=== PATIENT | female | born 1970 | race Caucasian/White ===

== ENCOUNTER 2017-07-12 15:15 | Inpatient (IN) | payer OTHER ==
[2017-07-12] MEDS ORDERED: SODIUM CHLORIDE 0.9% 1,000 ML IV STA (15:22)
[2017-07-12] MEDS ORDERED: SODIUM CHLORIDE 0.9% 1,000 ML with MVI, ADULT NO.4 WITH VIT K 10 ML, THIAMINE 100 MG, F... IV ONE ×4 (15:30)
[2017-07-12] MEDS ORDERED: LORazepam 2 MG/ML INJ IV PRN (15:32)
--- NOTE | 2017-07-12 15:36 | ED ---
General Adult HPI - General Chief complaint: Psychiatric Symptoms Stated complaint: ETOH/Suicidal Time Seen by Provider: 07/12/17 15:21 Source: patient, RN notes reviewed Mode of arrival: wheelchair Limitations: no limitations - History of Present Illness Initial comments: Patient 46-year-old female who admits to history of alcoholism, presenting to the emergency room today with a chief complaint of feeling suicidal. She does admits to being a daily drinker approximate pint a day. States last drink was approximately 5 hours ago. States called coworker to bring her here to the hospital if she is having thoughts of hurting herself. Patient does admit that she was admitted approximately beers ago for similar thoughts. She states she does not see a counselor or therapist regularly. She admits to abdominal pain but states this is nothing new has been going on for a long time. Patient denies any other complaints or symptoms at this time. Patient denies any recent fever, chills, shortness of breath, chest pain, back pain, headaches or visual changes, or any other complaints. - Related Data Home Medications Medication Instructions Recorded Confirmed Atenolol [Tenormin] 25 mg PO DAILY 07/12/17 07/12/17 Buprenorphine HCl/Naloxone HCl 1 film SL BID 07/12/17 07/12/17 [Suboxone 8 mg-2 mg Sl Film] Tiotropium Br/Olodaterol HCl 1 spray INHALATION RT-DAILY 07/12/17 07/12/17 [Stiolto Respimat Inhal [place]] Allergies Allergy/AdvReac Type Severity Reaction Status Date / Time No Known Allergies Allergy Verified 07/12/17 16:06 Review of Systems ROS Statement: Those systems with pertinent positive or pertinent negative responses have been documented in the HPI. ROS Other: All systems not noted in ROS Statement are negative. Past Medical History Past Medical History: Hypertension History of Any Multi-Drug Resistant Organisms: None Reported Past Surgical History: No Surgical Hx Reported Past Psychological History: No Psychological Hx Reported Smoking Status: Current every day smoker Past Alcohol Use History: Daily Past Drug Use History: None Reported General Exam - General Exam Comments Initial Comments: General: The patient is awake and alert, in no distress, and does not appear acutely ill. Intoxicated. Eye: Pupils are equal, round and reactive to light, extra-ocular movements are intact. No nystagmus. There is normal conjunctiva bilaterally. No signs of icterus. Ears, nose, mouth and throat: There are moist mucous membranes and no oral lesions. Neck: The neck is supple, there is no tenderness or JVD. Cardiovascular: There is a regular rate and rhythm. No murmur, rub or gallop is appreciated. Respiratory: Lungs are clear to auscultation, respirations are non-labored, breath sounds are equal. No wheezes, stridor, rales, or rhonchi. Gastrointestinal: Soft, non-distended, non-tender abdomen without masses or organomegaly noted. There is no rebound or guarding present. No CVA tenderness. Musculoskeletal: Normal ROM, no tenderness. Strength 5/5. Sensation intact. Pulses equal bilaterally 2+. Neurological: A&O x 3. CN II-XII intact, There are no obvious motor or sensory deficits. Coordination appears grossly intact. Speech is normal. Skin: Skin is warm and dry and no rashes or lesions are noted. Psychiatric: Cooperative Limitations: no limitations Course Vital Signs 07/12/17 07/12/17 07/12/17 15:15 19:17 20:37 Temperature 97 F L Pulse Rate 112 H 100 94 Respiratory 18 16 18 Rate Blood Pressure 162/88 136/74 O2 Sat by Pulse 95 93 L 93 L Oximetry 07/13/17 07/13/17 07/13/17 00:10 01:06 03:52 Temperature 98.0 F Pulse Rate 93 97 98 Respiratory 18 20 20 Rate Blood Pressure 156/84 148/78 132/60 O2 Sat by Pulse 93 L 92 L 93 L Oximetry 07/13/17 07/13/17 07/13/17 05:29 06:33 07:06 Temperature Pulse Rate 97 87 94 Respiratory 20 20 18 Rate Blood Pressure 150/91 139/67 150/83 O2 Sat by Pulse 91 L 90 L 90 L Oximetry 07/13/17 07/13/17 07/13/17 08:07 09:12 10:33 Temperature Pulse Rate 92 97 85 Respiratory 18 18 18 Rate Blood Pressure 143/81 143/81 155/89 O2 Sat by Pulse 91 L 96 93 L Oximetry 07/13/17 14:15 Temperature Pulse Rate 86 Respiratory 18 Rate Blood Pressure 150/72 O2 Sat by Pulse 97 Oximetry Medical Decision Making - Medical Decision Making Patient was seen here in the emergency room by [facility]. The recommendation at patient be admitted inpatient. No beds available here in [place] patient will be transferred. - Lab Data Result diagrams: 07/12/17 15:50 07/12/17 15:50 Lab Results 07/12/17 07/12/17 07/12/17 Range/Units 15:50 15:50 15:50 WBC 3.6 L (3.8-10.6) k/uL RBC 4.91 (3.80-5.40) m/uL Hgb 16.1 H (11.4-16.0) gm/dL Hct 50.1 H (34.0-46.0) % MCV 102.0 H (80.0-100.0) fL MCH 32.9 (25.0-35.0) pg MCHC 32.2 (31.0-37.0) g/dL RDW 13.2 (11.5-15.5) % Plt Count 250 (150-450) k/uL Neutrophils % 66 % Lymphocytes % 22 % Monocytes % 8 % Eosinophils % 2 % Basophils % 0 % Neutrophils # 2.3 (1.3-7.7) k/uL Lymphocytes # 0.8 L (1.0-4.8) k/uL Monocytes # 0.3 (0-1.0) k/uL Eosinophils # 0.1 (0-0.7) k/uL Basophils # 0.0 (0-0.2) k/uL Macrocytosis Slight Sodium 146 H (137-145) mmol/L Potassium 4.3 (3.5-5.1) mmol/L Chloride 98 (98-107) mmol/L Carbon Dioxide 13 L (22-30) mmol/L Anion Gap 35 mmol/L BUN 15 (7-17) mg/dL Creatinine 0.65 (0.52-1.04) mg/dL Est GFR (CKD-EPI)AfAm >90 (>60 ml/min/1.73 sqM) Est GFR (CKD-EPI)NonAf >90 (>60 ml/min/1.73 sqM) Glucose 71 L (74-99) mg/dL Calcium 9.1 (8.4-10.2) mg/dL Total Bilirubin 1.4 H (0.2-1.3) mg/dL AST 223 H (14-36) U/L ALT 164 H (9-52) U/L Alkaline Phosphatase 64 (38-126) U/L Total Protein 8.4 H (6.3-8.2) g/dL Albumin 5.0 (3.5-5.0) g/dL Urine Color Yellow Urine Appearance Clear (Clear) Urine pH 5.5 (5.0-8.0) Ur Specific [place] 1.006 (1.001-1.035) Urine Protein 1+ H (Negative) Urine Glucose (UA) Negative (Negative) Urine Ketones 2+ H (Negative) Urine Blood Trace H (Negative) Urine Nitrite Negative (Negative) Urine Bilirubin Negative (Negative) Urine Urobilinogen <2.0 (<2.0) mg/dL Ur Leukocyte Esterase Negative (Negative) Urine RBC <1 (0-5) /hpf Urine WBC <1 (0-5) /hpf Ur Squamous Epith Cells 1 (0-4) /hpf Hyaline Casts 5 H (0-2) /lpf Urine Mucus Rare H (None) /hpf Urine HCG, Qual (Not Detectd) Salicylates <1.0 mg/dL Urine Opiates Screen Not Detected (NotDetected) Ur Oxycodone Screen Not Detected (NotDetected) Urine Methadone Screen Not Detected (NotDetected) Ur Propoxyphene Screen Not Detected (NotDetected) Acetaminophen <10.0 ug/mL Ur Barbiturates Screen Not Detected (NotDetected) U Tricyclic Antidepress Not Detected (NotDetected) Ur Phencyclidine Scrn Not Detected (NotDetected) Ur Amphetamines Screen Not Detected (NotDetected) U Methamphetamines Scrn Not Detected (NotDetected) U Benzodiazepines Scrn Not Detected (NotDetected) Urine Cocaine Screen Not Detected (NotDetected) U Marijuana (THC) Screen Not Detected (NotDetected) 07/12/17 Range/Units 15:50 WBC (3.8-10.6) k/uL RBC (3.80-5.40) m/uL Hgb (11.4-16.0) gm/dL Hct (34.0-46.0) % MCV (80.0-100.0) fL MCH (25.0-35.0) pg MCHC (31.0-37.0) g/dL RDW (11.5-15.5) % Plt Count (150-450) k/uL Neutrophils % % Lymphocytes % % Monocytes % % Eosinophils % % Basophils % % Neutrophils # (1.3-7.7) k/uL Lymphocytes # (1.0-4.8) k/uL Monocytes # (0-1.0) k/uL Eosinophils # (0-0.7) k/uL Basophils # (0-0.2) k/uL Macrocytosis Sodium (137-145) mmol/L Potassium (3.5-5.1) mmol/L Chloride (98-107) mmol/L Carbon Dioxide (22-30) mmol/L Anion Gap mmol/L BUN (7-17) mg/dL Creatinine (0.52-1.04) mg/dL Est GFR (CKD-EPI)AfAm (>60 ml/min/1.73 sqM) Est GFR (CKD-EPI)NonAf (>60 ml/min/1.73 sqM) Glucose (74-99) mg/dL Calcium (8.4-10.2) mg/dL Total Bilirubin (0.2-1.3) mg/dL AST (14-36) U/L ALT (9-52) U/L Alkaline Phosphatase (38-126) U/L Total Protein (6.3-8.2) g/dL Albumin (3.5-5.0) g/dL Urine Color Urine Appearance (Clear) Urine pH (5.0-8.0) Ur Specific [place] (1.001-1.035) Urine Protein (Negative) Urine Glucose (UA) (Negative) Urine Ketones (Negative) Urine Blood (Negative) Urine Nitrite (Negative) Urine Bilirubin (Negative) Urine Urobilinogen (<2.0) mg/dL Ur Leukocyte Esterase (Negative) Urine RBC (0-5) /hpf Urine WBC (0-5) /hpf Ur Squamous Epith Cells (0-4) /hpf Hyaline Casts (0-2) /lpf Urine Mucus (None) /hpf Urine HCG, Qual Not Detected (Not Detectd) Salicylates mg/dL Urine Opiates Screen (NotDetected) Ur Oxycodone Screen (NotDetected) Urine Methadone Screen (NotDetected) Ur Propoxyphene Screen (NotDetected) Acetaminophen ug/mL Ur Barbiturates Screen (NotDetected) U Tricyclic Antidepress (NotDetected) Ur Phencyclidine Scrn (NotDetected) Ur Amphetamines Screen (NotDetected) U Methamphetamines Scrn (NotDetected) U Benzodiazepines Scrn (NotDetected) Urine Cocaine Screen (NotDetected) U Marijuana (THC) Screen (NotDetected) Disposition Clinical Impression: Suicidal ideation Disposition: TRANSFER TO PSYCH HOSP/UNIT Condition: Stable Is patient prescribed a controlled substance at d/c from ED?: No Referrals: None,Stated [Primary Care Provider] - 1-2 days Time of Disposition: 14:27
[2017-07-12 16:08] LABS: Basophils % (A) 0 %; Eosinophils # (A) 0.1 k/uL (0-0.7); Eosinophils % (A) 2 %; HCT 50.1 % (34.0-46.0); HGB 16.1 gm/dL (11.4-16.0); Lymphocytes # (A) 0.8 k/uL (1.0-4.8); Lymphocytes % (A) 22 %; MCH 32.9 pg (25.0-35.0); MCHC 32.2 g/dL (31.0-37.0); Macrocytosis Slight; Mean Platelet Volume 7.3; Monocytes # (A) 0.3 k/uL (0-1.0); Monocytes % (A) 8 %; Neutrophils # (A) 2.3 k/uL (1.3-7.7); Neutrophils % (A) 66 %; Platelet Count 250 k/uL (150-450); RBC 4.91 m/uL (3.80-5.40); RDW 13.2 % (11.5-15.5); WBC 3.6 k/uL (3.8-10.6)
[2017-07-12 16:12] LABS: ALT 164 U/L (9-52); AST 223 U/L (14-36); Acetaminophen <10.0 ug/mL; Alkaline Phosphatase 64 U/L (38-126); Anion Gap 35 mmol/L; Blood Urea Nitrogen 15 mg/dL (7-17); Calcium 9.1 mg/dL (8.4-10.2); Carbon Dioxide 13 mmol/L (22-30); Chloride 98 mmol/L (98-107); Glucose 71 mg/dL (74-99); Potassium 4.3 mmol/L (3.5-5.1); Salicylate <1.0 mg/dL; Sodium 146 mmol/L (137-145); Total Bilirubin 1.4 mg/dL (0.2-1.3); Total Protein 8.4 g/dL (6.3-8.2)
[2017-07-12 16:25] LABS: Appearance,Urine Clear (Clear); Bilirubin,Urine Negative (Negative); Blood,Urine Trace (Negative); Color,Urine Yellow; Glucose,Urine (UA) Negative (Negative); Hyaline Casts,Urine 5 /lpf (0-2); Ketones,Urine 2+ (Negative); Leukocyte Esterase,Urine Negative (Negative); Mucus,Urine Rare /hpf; Nitrite,Urine Negative (Negative); PH, Urine 5.5 (5.0-8.0); Protein,Urine 1+ (Negative); RBC,Urine <1 /hpf (0-5); Specific Gravity,Urine 1.006 (1.001-1.035); Squamous Epithelial Cell,Urine 1 /hpf (0-4); Urobilinogen,Urine <2.0 mg/dL (<2.0); WBC,Urine <1 /hpf (0-5)
[2017-07-12 16:27] LABS: Amphetamine Screen,Urine Not Detected (NotDetected); Barbiturate Screen,Urine Not Detected (NotDetected); Benzodiazepines Screen,Urine Not Detected (NotDetected); Cocaine Screen,Urine Not Detected (NotDetected); Methadone Screen, Urine Not Detected (NotDetected); Opiate Screen,Urine Not Detected (NotDetected); Oxycodone Screen, Urine Not Detected (NotDetected); Phencyclidine Screen,Urine Not Detected (NotDetected); Tricyclic Antidepressant,Urine Not Detected (NotDetected); Urn Cannabinoid Scrn Not Detected (NotDetected)
[2017-07-12] MEDS ORDERED: ONDANSETRON 4 MG/2 ML VIAL IVP STA ×2 (20:18→23:46)
[2017-07-12] MEDS: LORazepam 2 MG/ML INJ IV PRN (21:38)
[2017-07-13] MEDS: LORazepam 2 MG/ML INJ IV PRN ×6 (00:21→21:33)
[2017-07-13] MEDS ORDERED: ONDANSETRON 4 MG/2 ML VIAL IVP STA (05:22)
[2017-07-13] MEDS: THIAMINE 100 MG TAB PO SCH ×2 (14:14→17:03)
[2017-07-13 18:54] LABS: Glucose,Whole Blood 87 mg/dL (75-99)
--- NOTE | 2017-07-13 19:05 | XR ---
EXAMINATION TYPE: XR chest 2V DATE OF EXAM: 07/13/2017 COMPARISON: Chest x-ray December 08, 2010. HISTORY: Hypoxia. TECHNIQUE: Frontal and lateral views of the chest are obtained. FINDINGS: Suspicious spiculated opacity medial right upper lung. There is no focal air space opacity , pleural effusion, or pneumothorax seen. The cardiac silhouette size is within normal limits. The osseous structures are intact. IMPRESSION: No suspicious acute infiltrate. New spiculated right paratracheal opacity medial upper l obe could reflect spiculated nodule or neoplasm. Follow-up nonemergent contrast-enhanced chest CT is advised.
[2017-07-13] MEDS ORDERED: RX INFO: IV CONTRAST WAS GIVEN 1 EACH MISC MISCELLANE PRN (19:12)
--- NOTE | 2017-07-13 19:31 | ED ---
Medical Decision Making - Medical Decision Making Patient's initial pulse ox to the emergency room is 95% on room air. Patient was placed on oxygen due to intoxication. Patient's oxygen checked currently 93 % on 3 L of oxygen. Patient recently receiving Ativan approximately 2 hours ago. Patient admits to feeling some shortness of breath but not much more than her usual. She mitts. Daily smoker. Patient chest x-ray reveals possible mass right upper lobe. CT chest has been ordered and currently pending at this time. Patient will also have ABG. EKG showing no acute changes. EKG performed at 1911: Shows normal sinus rhythm at [address] interval 146. QRS 102. QT/QTc 432/469. No acute changes. 1929: Case discussed and signed out to Dr Smith - Lab Data Result diagrams: 07/12/17 15:50 07/12/17 15:50 Lab Results 07/12/17 07/12/17 07/12/17 Range/Units 15:50 15:50 15:50 WBC 3.6 L (3.8-10.6) k/uL RBC 4.91 (3.80-5.40) m/uL Hgb 16.1 H (11.4-16.0) gm/dL Hct 50.1 H (34.0-46.0) % MCV 102.0 H (80.0-100.0) fL MCH 32.9 (25.0-35.0) pg MCHC 32.2 (31.0-37.0) g/dL RDW 13.2 (11.5-15.5) % Plt Count 250 (150-450) k/uL Neutrophils % 66 % Lymphocytes % 22 % Monocytes % 8 % Eosinophils % 2 % Basophils % 0 % Neutrophils # 2.3 (1.3-7.7) k/uL Lymphocytes # 0.8 L (1.0-4.8) k/uL Monocytes # 0.3 (0-1.0) k/uL Eosinophils # 0.1 (0-0.7) k/uL Basophils # 0.0 (0-0.2) k/uL Macrocytosis Slight Sodium 146 H (137-145) mmol/L Potassium 4.3 (3.5-5.1) mmol/L Chloride 98 (98-107) mmol/L Carbon Dioxide 13 L (22-30) mmol/L Anion Gap 35 mmol/L BUN 15 (7-17) mg/dL Creatinine 0.65 (0.52-1.04) mg/dL Est GFR (CKD-EPI)AfAm >90 (>60 ml/min/1.73 sqM) Est GFR (CKD-EPI)NonAf >90 (>60 ml/min/1.73 sqM) Glucose 71 L (74-99) mg/dL POC Glucose (mg/dL) (75-99) mg/dL POC Glu Telephone Services Sales Representative ID Calcium 9.1 (8.4-10.2) mg/dL Total Bilirubin 1.4 H (0.2-1.3) mg/dL AST 223 H (14-36) U/L ALT 164 H (9-52) U/L Alkaline Phosphatase 64 (38-126) U/L Total Protein 8.4 H (6.3-8.2) g/dL Albumin 5.0 (3.5-5.0) g/dL Urine Color Yellow Urine Appearance Clear (Clear) Urine pH 5.5 (5.0-8.0) Ur Specific [place] 1.006 (1.001-1.035) Urine Protein 1+ H (Negative) Urine Glucose (UA) Negative (Negative) Urine Ketones 2+ H (Negative) Urine Blood Trace H (Negative) Urine Nitrite Negative (Negative) Urine Bilirubin Negative (Negative) Urine Urobilinogen <2.0 (<2.0) mg/dL Ur Leukocyte Esterase Negative (Negative) Urine RBC <1 (0-5) /hpf Urine WBC <1 (0-5) /hpf Ur Squamous Epith Cells 1 (0-4) /hpf Hyaline Casts 5 H (0-2) /lpf Urine Mucus Rare H (None) /hpf Urine HCG, Qual (Not Detectd) Salicylates <1.0 mg/dL Urine Opiates Screen Not Detected (NotDetected) Ur Oxycodone Screen Not Detected (NotDetected) Urine Methadone Screen Not Detected (NotDetected) Ur Propoxyphene Screen Not Detected (NotDetected) Acetaminophen <10.0 ug/mL Ur Barbiturates Screen Not Detected (NotDetected) U Tricyclic Antidepress Not Detected (NotDetected) Ur Phencyclidine Scrn Not Detected (NotDetected) Ur Amphetamines Screen Not Detected (NotDetected) U Methamphetamines Scrn Not Detected (NotDetected) U Benzodiazepines Scrn Not Detected (NotDetected) Urine Cocaine Screen Not Detected (NotDetected) U Marijuana (THC) Screen Not Detected (NotDetected) 07/12/17 07/13/17 Range/Units 15:50 18:46 WBC (3.8-10.6) k/uL RBC (3.80-5.40) m/uL Hgb (11.4-16.0) gm/dL Hct (34.0-46.0) % MCV (80.0-100.0) fL MCH (25.0-35.0) pg MCHC (31.0-37.0) g/dL RDW (11.5-15.5) % Plt Count (150-450) k/uL Neutrophils % % Lymphocytes % % Monocytes % % Eosinophils % % Basophils % % Neutrophils # (1.3-7.7) k/uL Lymphocytes # (1.0-4.8) k/uL Monocytes # (0-1.0) k/uL Eosinophils # (0-0.7) k/uL Basophils # (0-0.2) k/uL Macrocytosis Sodium (137-145) mmol/L Potassium (3.5-5.1) mmol/L Chloride (98-107) mmol/L Carbon Dioxide (22-30) mmol/L Anion Gap mmol/L BUN (7-17) mg/dL Creatinine (0.52-1.04) mg/dL Est GFR (CKD-EPI)AfAm (>60 ml/min/1.73 sqM) Est GFR (CKD-EPI)NonAf (>60 ml/min/1.73 sqM) Glucose (74-99) mg/dL POC Glucose (mg/dL) 87 (75-99) mg/dL POC Glu Telephone Services Sales Representative ID Kiara Beavers Calcium (8.4-10.2) mg/dL Total Bilirubin (0.2-1.3) mg/dL AST (14-36) U/L ALT (9-52) U/L Alkaline Phosphatase (38-126) U/L Total Protein (6.3-8.2) g/dL Albumin (3.5-5.0) g/dL Urine Color Urine Appearance (Clear) Urine pH (5.0-8.0) Ur Specific [place] (1.001-1.035) Urine Protein (Negative) Urine Glucose (UA) (Negative) Urine Ketones (Negative) Urine Blood (Negative) Urine Nitrite (Negative) Urine Bilirubin (Negative) Urine Urobilinogen (<2.0) mg/dL Ur Leukocyte Esterase (Negative) Urine RBC (0-5) /hpf Urine WBC (0-5) /hpf Ur Squamous Epith Cells (0-4) /hpf Hyaline Casts (0-2) /lpf Urine Mucus (None) /hpf Urine HCG, Qual Not Detected (Not Detectd) Salicylates mg/dL Urine Opiates Screen (NotDetected) Ur Oxycodone Screen (NotDetected) Urine Methadone Screen (NotDetected) Ur Propoxyphene Screen (NotDetected) Acetaminophen ug/mL Ur Barbiturates Screen (NotDetected) U Tricyclic Antidepress (NotDetected) Ur Phencyclidine Scrn (NotDetected) Ur Amphetamines Screen (NotDetected) U Methamphetamines Scrn (NotDetected) U Benzodiazepines Scrn (NotDetected) Urine Cocaine Screen (NotDetected) U Marijuana (THC) Screen (NotDetected) Disposition Clinical Impression: Suicidal ideation Disposition: TRANSFER TO PSYCH HOSP/UNIT Condition: Stable Referrals: None,Stated [Primary Care Provider] - 1-2 days
--- NOTE | 2017-07-13 20:21 | CT ---
EXAMINATION TYPE: CT angio chest DATE OF EXAM: 07/13/2017 COMPARISON: Chest x-ray earlier today. HISTORY: Chest pain and shortness of breath. CT DLP: 587 mGycm. Automated Exposure Control for Dose Reduction was Utilized. CONTRAST: CTA scan of the thorax is performed with IV Contrast, patient injected with 75 mL of Isovue 370, pulm onary embolism protocol. MIP Images are created on CT scanner and reviewed. FINDINGS: LUNGS: Corresponding to chest x-ray abnormality there is elongated atelectasis or consolidation invol ving the medial aspect right upper lobe abutting the mediastinum, consider endobronchial occlusion as there is marked narrowing of right upper lung segmental bronchus at this level. Would suspect mucous plugging. Left lung is clear. No pleural effusion or pneumothorax is present bilaterally. There is a dditional atelectasis along the fissure of the right upper lobe and scattered right upper lung linear atelectasis. There is no pleural effusion or pneumothorax seen. The tracheobronchial tree is paten t. MEDIASTINUM: There is suboptimal bolus with thecal contrast in right and left heart systems, but ther e is no CT evidence for pulmonary embolism. There are no greater than 1 cm hilar or mediastinal lymp h nodes. No cardiomegaly or pericardial effusion is seen. OTHER: Small to moderate size hiatal hernia is present liver is diffusely low dense consistent with f atty infiltration.. IMPRESSION: 1. Suboptimal study without CT evidence for acute pulmonary embolism. 2. Scattered atelectatic change throughout the right upper lobe with more prominent focal medial atel ectasis felt present, consider obstructing mucous plug or other endobronchial lesion. No obvious mass or adenopathy noted. Documentation of radiographic resolution advised.
[2017-07-13 20:31] LABS: ABG Base Excess 5.5 mmol/L; ABG HCO3 29 mmol/L (21-25); ABG Oxygen Saturation 93.1 % (94-97); ABG PCO2 37 mmHg (35-45); ABG PO2 63 mmHg (83-108); ABG TCO2 30 mmol/L (19-24)
[2017-07-13] MEDS ORDERED: IPRATROPIUM-ALBUTEROL 3 ML NEB INHALATION PRN (21:40)
--- NOTE | 2017-07-13 21:40 | ED ---
Medical Decision Making - Medical Decision Making Patient was reportedly found by nursing to have continued low oxygen saturation. Patient does admit to being a heavy smoker. ABG shows pH 7.49. CO2 7.4. O2 63.3. Patient does have some wheezing on exam otherwise resting comfortably in bed. CT report reviewed. Case was discussed with Dr. bravo, who will admit for medical call. Pulmonary will be consulted. VQ scan will be ordered. Patient states she did originally present for concerns regarding her alcohol use. Patient does admit that she made suicidal threats however stated that was only if she did not receive help for her alcohol. Patient does admit to having some dyspnea however states this is chronic and unchanged for her. - Lab Data Result diagrams: 07/12/17 15:50 07/12/17 15:50 Lab Results 07/12/17 07/12/17 07/12/17 Range/Units 15:50 15:50 15:50 WBC 3.6 L (3.8-10.6) k/uL RBC 4.91 (3.80-5.40) m/uL Hgb 16.1 H (11.4-16.0) gm/dL Hct 50.1 H (34.0-46.0) % MCV 102.0 H (80.0-100.0) fL MCH 32.9 (25.0-35.0) pg MCHC 32.2 (31.0-37.0) g/dL RDW 13.2 (11.5-15.5) % Plt Count 250 (150-450) k/uL Neutrophils % 66 % Lymphocytes % 22 % Monocytes % 8 % Eosinophils % 2 % Basophils % 0 % Neutrophils # 2.3 (1.3-7.7) k/uL Lymphocytes # 0.8 L (1.0-4.8) k/uL Monocytes # 0.3 (0-1.0) k/uL Eosinophils # 0.1 (0-0.7) k/uL Basophils # 0.0 (0-0.2) k/uL Macrocytosis Slight Sample Site ABG pH (7.35-7.45) ABG pCO2 (35-45) mmHg ABG pO2 (83-108) mmHg ABG HCO3 (21-25) mmol/L ABG Total CO2 (19-24) mmol/L ABG O2 Saturation (94-97) % ABG Base Excess mmol/L Favian Test FiO2 % Sodium 146 H (137-145) mmol/L Potassium 4.3 (3.5-5.1) mmol/L Chloride 98 (98-107) mmol/L Carbon Dioxide 13 L (22-30) mmol/L Anion Gap 35 mmol/L BUN 15 (7-17) mg/dL Creatinine 0.65 (0.52-1.04) mg/dL Est GFR (CKD-EPI)AfAm >90 (>60 ml/min/1.73 sqM) Est GFR (CKD-EPI)NonAf >90 (>60 ml/min/1.73 sqM) Glucose 71 L (74-99) mg/dL POC Glucose (mg/dL) (75-99) mg/dL POC Glu Ex Chef ID Calcium 9.1 (8.4-10.2) mg/dL Total Bilirubin 1.4 H (0.2-1.3) mg/dL AST 223 H (14-36) U/L ALT 164 H (9-52) U/L Alkaline Phosphatase 64 (38-126) U/L Total Protein 8.4 H (6.3-8.2) g/dL Albumin 5.0 (3.5-5.0) g/dL Urine Color Yellow Urine Appearance Clear (Clear) Urine pH 5.5 (5.0-8.0) Ur Specific [place] 1.006 (1.001-1.035) Urine Protein 1+ H (Negative) Urine Glucose (UA) Negative (Negative) Urine Ketones 2+ H (Negative) Urine Blood Trace H (Negative) Urine Nitrite Negative (Negative) Urine Bilirubin Negative (Negative) Urine Urobilinogen <2.0 (<2.0) mg/dL Ur Leukocyte Esterase Negative (Negative) Urine RBC <1 (0-5) /hpf Urine WBC <1 (0-5) /hpf Ur Squamous Epith Cells 1 (0-4) /hpf Hyaline Casts 5 H (0-2) /lpf Urine Mucus Rare H (None) /hpf Urine HCG, Qual (Not Detectd) Salicylates <1.0 mg/dL Urine Opiates Screen Not Detected (NotDetected) Ur Oxycodone Screen Not Detected (NotDetected) Urine Methadone Screen Not Detected (NotDetected) Ur Propoxyphene Screen Not Detected (NotDetected) Acetaminophen <10.0 ug/mL Ur Barbiturates Screen Not Detected (NotDetected) U Tricyclic Antidepress Not Detected (NotDetected) Ur Phencyclidine Scrn Not Detected (NotDetected) Ur Amphetamines Screen Not Detected (NotDetected) U Methamphetamines Scrn Not Detected (NotDetected) U Benzodiazepines Scrn Not Detected (NotDetected) Urine Cocaine Screen Not Detected (NotDetected) U Marijuana (THC) Screen Not Detected (NotDetected) 07/12/17 07/13/17 07/13/17 Range/Units 15:50 18:46 20:25 WBC (3.8-10.6) k/uL RBC (3.80-5.40) m/uL Hgb (11.4-16.0) gm/dL Hct (34.0-46.0) % MCV (80.0-100.0) fL MCH (25.0-35.0) pg MCHC (31.0-37.0) g/dL RDW (11.5-15.5) % Plt Count (150-450) k/uL Neutrophils % % Lymphocytes % % Monocytes % % Eosinophils % % Basophils % % Neutrophils # (1.3-7.7) k/uL Lymphocytes # (1.0-4.8) k/uL Monocytes # (0-1.0) k/uL Eosinophils # (0-0.7) k/uL Basophils # (0-0.2) k/uL Macrocytosis Sample Site RRA ABG pH 7.50 H (7.35-7.45) ABG pCO2 37 (35-45) mmHg ABG pO2 63 L (83-108) mmHg ABG HCO3 29 H (21-25) mmol/L ABG Total CO2 30 H (19-24) mmol/L ABG O2 Saturation 93.1 L (94-97) % ABG Base Excess 5.5 mmol/L Favian Test Yes FiO2 21 % Sodium (137-145) mmol/L Potassium (3.5-5.1) mmol/L Chloride (98-107) mmol/L Carbon Dioxide (22-30) mmol/L Anion Gap mmol/L BUN (7-17) mg/dL Creatinine (0.52-1.04) mg/dL Est GFR (CKD-EPI)AfAm (>60 ml/min/1.73 sqM) Est GFR (CKD-EPI)NonAf (>60 ml/min/1.73 sqM) Glucose (74-99) mg/dL POC Glucose (mg/dL) 87 (75-99) mg/dL POC Glu Ex Chef Kiara Prado Calcium (8.4-10.2) mg/dL Total Bilirubin (0.2-1.3) mg/dL AST (14-36) U/L ALT (9-52) U/L Alkaline Phosphatase (38-126) U/L Total Protein (6.3-8.2) g/dL Albumin (3.5-5.0) g/dL Urine Color Urine Appearance (Clear) Urine pH (5.0-8.0) Ur Specific [place] (1.001-1.035) Urine Protein (Negative) Urine Glucose (UA) (Negative) Urine Ketones (Negative) Urine Blood (Negative) Urine Nitrite (Negative) Urine Bilirubin (Negative) Urine Urobilinogen (<2.0) mg/dL Ur Leukocyte Esterase (Negative) Urine RBC (0-5) /hpf Urine WBC (0-5) /hpf Ur Squamous Epith Cells (0-4) /hpf Hyaline Casts (0-2) /lpf Urine Mucus (None) /hpf Urine HCG, Qual Not Detected (Not Detectd) Salicylates mg/dL Urine Opiates Screen (NotDetected) Ur Oxycodone Screen (NotDetected) Urine Methadone Screen (NotDetected) Ur Propoxyphene Screen (NotDetected) Acetaminophen ug/mL Ur Barbiturates Screen (NotDetected) U Tricyclic Antidepress (NotDetected) Ur Phencyclidine Scrn (NotDetected) Ur Amphetamines Screen (NotDetected) U Methamphetamines Scrn (NotDetected) U Benzodiazepines Scrn (NotDetected) Urine Cocaine Screen (NotDetected) U Marijuana (THC) Screen (NotDetected) - Radiology Data Radiology results: report reviewed (CT angios of the chest is limited for pulmonary embolism. Suboptimal study. Atelectasis right upper lobe. Possible mucous plug or and no bronchial lesion.), image reviewed (Chest x-ray shows spiculated right. Tracheal opacity medial upper lobe.) Disposition Clinical Impression: Suicidal ideation, Dyspnea Disposition: ADMITTED IP TO THIS HOSP Condition: Stable Referrals: None,Stated [Primary Care Provider] - 1-2 days
--- NOTE | 2017-07-13 23:43 | NM ---
EXAMINATION TYPE: NM pul vent and perfuse DATE OF EXAM: 07/13/2017 COMPARISON: NONE HISTORY: TECHNIQUE: Utilizing inhalation of 39.5 mCi Tc 99m DTPA aerosol and intravenous injection of 4.97 mC i of Tc 99m MAA, ventilation and perfusion images are acquired post injection in multiple projections . FINDINGS: There is a matching defect involving the entire right upper lobe. There is some clumping of the trace r on the ventilation images centrally. The left lung appears Fairly normal perfusion. There is also fairly normal perfusion of the right lower lobe. There is no v entilation/perfusion mismatch. IMPRESSION: There is a large matching defect in the right upper lobe. I see no corresponding pulmonary consolidat ion or mass in the right upper lobe on the chest x-ray of today. This appearance could relate to airw ay disease. There is a low to intermediate probability of pulmonary embolism.
[2017-07-14 00:24] VITALS: BMI 31.7
[2017-07-14] MEDS: LORazepam 2 MG/ML INJ IV PRN ×7 (00:31→23:48)
[2017-07-14] MEDS: methylPREDNISolone SOD SUCCI 125 MG/2 ML VIAL IV SCH ×3 (00:31→11:40)
[2017-07-14] MEDS: IPRATROPIUM-ALBUTEROL 3 ML NEB INHALATION SCH ×6 (07:05→20:18)
[2017-07-14 07:28] LABS: Basophils % (A) 0 %; Eosinophils # (A) 0.1 k/uL (0-0.7); Eosinophils % (A) 1 %; HCT 49.8 % (34.0-46.0); HGB 16.1 gm/dL (11.4-16.0); Lymphocytes # (A) 0.4 k/uL (1.0-4.8); Lymphocytes % (A) 10 %; MCH 32.9 pg (25.0-35.0); MCHC 32.3 g/dL (31.0-37.0); Macrocytosis Slight; Monocytes # (A) 0.2 k/uL (0-1.0); Monocytes % (A) 5 %; Neutrophils # (A) 3.2 k/uL (1.3-7.7); Neutrophils % (A) 82 %; Platelet Count 152 k/uL (150-450); RBC 4.89 m/uL (3.80-5.40); RDW 12.9 % (11.5-15.5); WBC 3.9 k/uL (3.8-10.6)
[2017-07-14 07:48] LABS: ALT 144 U/L (9-52); AST 159 U/L (14-36); Albumin 4.6 g/dL (3.5-5.0); Alkaline Phosphatase 54 U/L (38-126); Anion Gap 20 mmol/L; Blood Urea Nitrogen 12 mg/dL (7-17); Calcium 9.4 mg/dL (8.4-10.2); Carbon Dioxide 24 mmol/L (22-30); Chloride 97 mmol/L (98-107); Glucose 124 mg/dL (74-99); Potassium 4.3 mmol/L (3.5-5.1); Sodium 141 mmol/L (137-145); Total Bilirubin 2.9 mg/dL (0.2-1.3); Total Protein 7.8 g/dL (6.3-8.2)
[2017-07-14] MEDS: ATENOLOL 25 MG TAB PO SCH (07:57)
[2017-07-14] MEDS: NON-FORMULARY DRUG (Buprenorphine Hcl/Naloxone Hcl [Suboxone 8 Mg-2 Mg Sl Film] 1 FILM) SL SCH ×2 (07:57→20:09)
[2017-07-14] MEDS: THIAMINE 100 MG TAB PO SCH ×2 (11:41→16:55)
--- NOTE | 2017-07-14 14:56 | P.HPIM ---
History of Present Illness This is a 46-year-old female came in to ER for alcohol detox patient apparently was complaining of suicidal ideations at the time patient denied any suicide ideations to me. Patient was doing okay was about to be transferred to psychiatric facility and and patient stayed in ER for for about a day or more and patient later found to be hypoxic because of extensive workup was obtained CAT scan of the chest was obtained which showed some atelectasis along with some air bronchograms suspicious for pneumonic process and a mucous plug without any pulmonary embolism patient doesn't have any significant wheezing does not appear to have any COPD exaggeration of asthma exacerbation has hypoxemia cannot be clearly explained because of which a VQ scan was obtained which showed enlarging matching defect in the right upper lobe and was read as low to intermediate property for pulmonary embolism. Considering low intermittent property along with a negative CAT scan my suspicion is extremely low that patient has PE although pathology was consulted the started her on Zosyn most probably because the air bronchogram in the right upper lobes with the possibility of aspiration. Patient presently is undergoing alcohol withdrawal and [facility] Patient apparently drinks 1 pint of alcohol every day. Patient is on room air at this time. Patient doesn't have any fever doesn't have any leukocytosis is comparing of cough without any sputum production. Patient denied any generalized body aches. ABG showed mild hypoxemia and respiratory alkalosis probably from anxiety. Does have elevated liver enzymes secondary to acute alcoholic hepatitis with mildly elevated bilirubin. Hepatitis panel and ultrasound of the liver gallbladder will be obtained. Patient is complaining of for generalized tiredness chills and tremors Review of Systems REVIEW OF SYSTEMS: CONSTITUTIONAL: No fever, no malaise, no fatigue. HEENT: No recent visual problems or hearing problems. Denied any sore throat. CARDIOVASCULAR: No chest pain, orthopnea, PND, no palpitations, no syncope. PULMONARY: No shortness of breath, no cough, no hemoptysis. GASTROINTESTINAL: No diarrhea, no nausea, no vomiting, no abdominal pain. Normoactive bowel sounds. NEUROLOGICAL: No headaches, no weakness, no numbness. HEMATOLOGICAL: Denies any bleeding or petechiae. GENITOURINARY: Denies any burning micturition, frequency, or urgency. MUSCULOSKELETAL/RHEUMATOLOGICAL: Denies any joint pain, swelling, or any muscle pain. ENDOCRINE: Denies any polyuria or polydipsia. The rest of the 14-point review of systems is negative. Past Medical History Past Medical History: Hypertension History of Any Multi-Drug Resistant Organisms: None Reported Past Surgical History: No Surgical Hx Reported, Tonsillectomy Past Psychological History: No Psychological Hx Reported Smoking Status: Current every day smoker Past Alcohol Use History: Daily Past Drug Use History: None Reported Medications and Allergies Home Medications Medication Instructions Recorded Confirmed Type Atenolol [Tenormin] 25 mg PO DAILY 07/12/17 07/12/17 History Buprenorphine HCl/Naloxone HCl 1 film SL BID 07/12/17 07/12/17 History [Suboxone 8 mg-2 mg Sl Film] Tiotropium Br/Olodaterol HCl 1 spray INHALATION RT-DAILY 07/12/17 07/12/17 History [Stiolto Respimat Inhal [place]] Allergies Allergy/AdvReac Type Severity Reaction Status Date / Time No Known Allergies Allergy Verified 07/12/17 16:06 Physical Exam Vitals: Vital Signs Temp Pulse Pulse Resp BP BP Pulse Ox 07/14/17 14:06 99.2 F 75 16 142/79 93 L 07/14/17 11:38 94 L 07/14/17 11:11 76 07/14/17 11:06 80 07/14/17 07:15 72 07/14/17 07:10 97.7 F 86 16 131/80 90 L 07/14/17 07:08 72 07/14/17 00:30 97.8 F 71 18 134/76 95 07/13/17 21:24 76 18 164/96 94 L 07/13/17 20:17 78 18 166/79 96 07/13/17 19:35 20 07/13/17 16:58 79 18 140/72 95 07/13/17 15:44 76 18 136/78 97 Intake and Output 07/13/17 07/14/17 07/14/17 22:59 06:59 14:59 Other: Voiding Method Toilet Toilet # Voids 2 Weight 83.915 kg PHYSICAL EXAMINATION: GENERAL: The patient is alert and oriented x3, not in any acute distress. Well developed, well nourished. Patient is bit tremulous HEENT: Pupils are round and equally reacting to light. EOMI. mild scleral icterus. No conjunctival pallor. Normocephalic, atraumatic. No pharyngeal erythema. No thyromegaly. CARDIOVASCULAR: S1 and S2 present. No murmurs, rubs, or gallops. PULMONARY: Chest is clear to auscultation, no wheezing or crackles. ABDOMEN: Soft, nontender, nondistended, normoactive bowel sounds. No palpable organomegaly. MUSCULOSKELETAL: No joint swelling or deformity. EXTREMITIES: No cyanosis, clubbing, or pedal edema. NEUROLOGICAL: Gross neurological examination did not reveal any focal deficits. SKIN: No rashes. Results CBC & Chem 7: 07/14/17 07:12 07/14/17 07:12 Labs: Abnormal Lab Results - Last 24 Hours (Table) 07/13/17 07/14/17 07/14/17 Range/Units 20:25 07:12 07:12 Hgb 16.1 H (11.4-16.0) gm/dL Hct 49.8 H (34.0-46.0) % MCV 102.0 H (80.0-100.0) fL Lymphocytes # 0.4 L (1.0-4.8) k/uL ABG pH 7.50 H (7.35-7.45) ABG pO2 63 L (83-108) mmHg ABG HCO3 29 H (21-25) mmol/L ABG Total CO2 30 H (19-24) mmol/L ABG O2 Saturation 93.1 L (94-97) % Chloride 97 L (98-107) mmol/L Creatinine 0.46 L (0.52-1.04) mg/dL Glucose 124 H (74-99) mg/dL Total Bilirubin 2.9 H (0.2-1.3) mg/dL AST 159 H (14-36) U/L ALT 144 H (9-52) U/L Thrombosis Risk Factor Assmnt - Choose All That Apply Any of the Below Risk Factors Present?: Yes Each Factor Represents 1 point: Abnormal pulmonary function (COPD), Age 41-60 years, Obesity (BMI >25) Other Risk Factors: No Other congenital or acquired thrombophilia - If yes, enter type in comment: No Thrombosis Risk Factor Assessment Total Risk Factor Score: 3 Thrombosis Risk Factor Assessment Level: Moderate Risk Assessment and Plan Plan: -Acute hypoxic respiratory failure: Unsure of the exact etiology patient is doing better now probably related to pneumonitis from aspiration patient may not require any antibiotics it's problem as most probably it's chemically mellitus anyways on the right discussed with pulmonology will continue with antibiotics, Considering a bronchogram in the right upper lobes along with possible mucus plugging. Suspicion is extremely alert but patient has be. Patient doesn't have any significant wheezing systemic steroids will be discontinued -Alcohol abuse: Counseling was provided -Severe depression: Psychiatric was consulted, patient has questionable suicidal ideation patient has a one-on-one sitter at this time -Alcohol withdrawal: Patient will be on Ativan CIWA protocol -Hypertension -Elevated liver enzymes: Most probably due to acute alcoholic hepatitis repeat liver enzymes tomorrow, acute hepatitis panel and ultrasound of the gallbladder tomorrow.
--- NOTE | 2017-07-14 15:33 | P.CNPUL ---
History of Present Illness Consult date: 07/14/17 Requesting physician: Brant Saldaña Reason for consult: abnormal CXR/CT, other Chief complaint: Right upper lobe opacity, rule out mucous plug versus endobronchial mass History of present illness: Tasia is a 46-year-old white female patient of Dr. Butcher, who was brought to the emergency department on 07/12/2017 at 1515 with complaints of feeling suicidal. Patient reports drinking heavily for 2 days prior to admission, she reportedly drink 2 quarts of vodka, was feeling depressed. She called her friend and requested to be taken to the hospital. Patient has a history of prior suicidal attempts right overdose, currently is not on any meds for depression, and she does not follow with any psychiatrist. She is a current smoker, 1-1/2 pack a day, for last 10-15 years, denies any history of asthma or COPD, prior history of chronic pulmonary conditions. Patient has a history of heroin abuse, in remission, she is currently on Suboxone. Other medical history includes hypertension, no history of heart disease or diabetes. Patient reports vomiting several times while she was intoxicated, is having some chills and sweats, but denies any dyspnea. Chest x-ray completed in emergency room showed new spiculated right paratracheal opacity in the medial upper lobe, as well as followed up with CTA chest which did not show any evidence for pulmonary embolism, and showed scattered atelectatic changes throughout the right upper lobe with more prominent focal medial atelectasis, with the possibility of an obstructing mucous plug or other endobronchial lesion. No obvious mass or adenopathy noted. VQ scan showed a low to intermediate probability of pulmonary embolism, and a large matching defect in the right upper lobe without corresponding pulmonary consolidation or mass. Patient has been afebrile while in the hospital, room air and socks is 88%, patient is on 2 L of oxygen per nasal cannula to sat at 93-94%. Labs showed WBC of 3.6, hemoglobin is 16.1, sodium of 146, CO2 of 13, BUN of 15, creatinine 0.65, urinalysis showed 1+ protein, 2+ ketones, trace blood, negative for leuks , and nitrites. Urine hCG was negative, salicylate level was less than 1.0, acetaminophen level was less than 10, urine drug screen was negative. Blood gas bleeding in the emergency room showed pO2 of 63, pCO2 of 37, and pH of 7.50 , and this was done on room air, with metabolic alkalosis and hypoxemia. Patient has significant wheezing and bronchospastic cough, was started on nebulized bronchodilators, started on Ativan for EtOH withdrawals, she was placed suicidal precautions, and was admitted for further management. We are asked to see this patient in consultation in regards to the right upper lobe opacity. Review of Systems All systems: negative Constitutional: Denies chills, Denies fever Eyes: denies blurred vision, denies pain Ears, nose, mouth and throat: Denies headache, Denies sore throat Cardiovascular: Denies chest pain, Denies shortness of breath Respiratory: Denies cough Gastrointestinal: Denies abdominal pain, Denies diarrhea, Denies nausea, Denies vomiting Genitourinary: Denies dysuria, Denies hematuria Musculoskeletal: Denies myalgias Integumentary: Denies pruritus, Denies rash Neurological: Denies numbness, Denies weakness Psychiatric: Denies anxiety, Denies depression Endocrine: Denies fatigue, Denies weight change Past Medical History Past Medical History: Hypertension History of Any Multi-Drug Resistant Organisms: None Reported Past Surgical History: No Surgical Hx Reported, Tonsillectomy Past Psychological History: No Psychological Hx Reported Smoking Status: Current every day smoker Past Alcohol Use History: Daily Past Drug Use History: None Reported Medications and Allergies Home Medications Medication Instructions Recorded Confirmed Type Atenolol [Tenormin] 25 mg PO DAILY 07/12/17 07/12/17 History Buprenorphine HCl/Naloxone HCl 1 film SL BID 07/12/17 07/12/17 History [Suboxone 8 mg-2 mg Sl Film] Tiotropium Br/Olodaterol HCl 1 spray INHALATION RT-DAILY 07/12/17 07/12/17 History [Stiolto Respimat Inhal [place]] Allergies Allergy/AdvReac Type Severity Reaction Status Date / Time No Known Allergies Allergy Verified 07/12/17 16:06 Physical Exam Vitals: Vital Signs Temp Pulse Pulse Resp BP BP Pulse Ox 07/14/17 14:06 99.2 F 75 16 142/79 93 L 07/14/17 11:38 94 L 07/14/17 11:11 76 07/14/17 11:06 80 05/16/18 07:15 72 07/14/17 07:10 97.7 F 86 16 131/80 90 L 07/14/17 07:08 72 07/14/17 00:30 97.8 F 71 18 134/76 95 07/13/17 21:24 76 18 164/96 94 L 07/13/17 20:17 78 18 166/79 96 07/13/17 19:35 20 07/13/17 16:58 79 18 140/72 95 07/13/17 15:44 76 18 136/78 97 Intake and Output 07/13/17 07/14/17 07/14/17 22:59 06:59 14:59 Other: Voiding Method Toilet Toilet # Voids 2 Weight 83.915 kg 46-year-old white female resting in bed, diaphoretic, disheveled, in no acute distress - Constitutional General appearance: cooperative, disheveled, no acute distress, obese - EENT Eyes: PERRLA ENT: NA/AT Ears: bilateral: normal - Neck Neck: no lymphadenopathy, normal ROM Carotids: bilateral: upstroke normal Thyroid: bilateral: normal size - Respiratory Respiratory: bilateral: wheezing, prolonged expiration - Cardiovascular Rhythm: regular Heart sounds: normal: S1, S2 ankle Peripheral Edema: absent: None leg Peripheral Edema: absent: None foot Peripheral Edema: absent: None dorsalis pedis Peripheral Pulses: bilateral: Normal radial pulse Peripheral Pulses: bilateral: Normal - Gastrointestinal General gastrointestinal: no organomegaly, soft, no tenderness - Integumentary Integumentary: normal turgor - Neurologic Neurologic: CNII-XII intact - Musculoskeletal Musculoskeletal: strength equal bilaterally - Psychiatric Psychiatric: A&O x's 3, appropriate affect, intact judgment & insight Results - Laboratory Findings CBC and BMP: 07/14/17 07:12 07/14/17 07:12 ABG ABG pH 7.50 (7.35-7.45) H 07/13/17 20:25 ABG pCO2 37 mmHg (35-45) 07/13/17 20:25 ABG pO2 63 mmHg (83-108) L 07/13/17 20:25 ABG O2 Saturation 93.1 % (94-97) L 07/13/17 20:25 Abnormal lab findings: Abnormal Labs 07/12/17 07/12/1707/12/18 15:50 15:50 15:50 WBC 3.6 L Hgb 16.1 H Hct 50.1 H MCV 102.0 H Lymphocytes # 0.8 L ABG pH ABG pO2 ABG HCO3 ABG Total CO2 ABG O2 Saturation Sodium 146 H Chloride Carbon Dioxide 13 L Creatinine Glucose 71 L Total Bilirubin 1.4 H AST 223 H ALT 164 H Total Protein 8.4 H Urine Protein 1+ H Urine Ketones 2+ H Urine Blood Trace H Hyaline Casts 5 H Urine Mucus Rare H 07/13/17 07/14/17 07/14/17 20:25 07:12 07:12 WBC Hgb 16.1 H Hct 49.8 H MCV 102.0 H Lymphocytes # 0.4 L ABG pH 7.50 H ABG pO2 63 L ABG HCO3 29 H ABG Total CO2 30 H ABG O2 Saturation 93.1 L Sodium Chloride 97 L Carbon Dioxide Creatinine 0.46 L Glucose 124 H Total Bilirubin 2.9 H AST 159 H ALT 144 H Total Protein Urine Protein Urine Ketones Urine Blood Hyaline Casts Urine Mucus - Diagnostic Findings Chest x-ray: report reviewed, image reviewed Additional studies: EKG reviewed Assessment and Plan Plan: Assessment: #1. Right upper lobe obstructing mucous plug versus endobronchial lesion, with surrounding atelectasis, without evidence of obvious mass or adenopathy. #2. Suspect possible aspiration, patient reports several episodes of vomiting at home #3. EtOH abuse #4. Suicidal ideation #5. Elevated liver transaminases, likely related to alcohol abuse #6. History of major depression with previous suicidal attempts by overdose #7. Nicotine dependence, patient smokes one and a half packs a day for 10-15 years #8. History of heroin abuse, currently in remission, and the patient is on Suboxone Plan: Chest x-ray and CTA chest reviewed by Dr. Galloway. The right upper lobe endobronchial lesion is likely related to mucous plugging, the possibility of a neoplasm is a lot less likely due to the patient's age. Continue with nebulized bronchodilators, will add Zosyn for possible aspiration. Continue IV steroids, continue CIWA protocol for EtOH withdrawal management. We'll repeat chest x-ray tomorrow. Maintain aspiration precautions. I performed a history & physical examination of the patient and discussed their management with my nurse practitioner, Rachael Valencia. I reviewed the nurse practitioner's note and agree with the documented findings and plan of care. Lung sounds are positive for scattered wheezes, congested nonproductive cough. The findings and the impression was discussed with the patient. I attest to the documentation by the nurse practitioner. Time with Patient: Greater than 30
[2017-07-14] MEDS: PIPERACILLIN-TAZOBACTAM 3.375 GM in DEXTROSE/WATER 1 50ML.BAG IVPB SCH ×2 (16:55→23:48)
--- NOTE | 2017-07-14 19:08 | US ---
EXAMINATION TYPE: US gallbladder DATE OF EXAM: 07/14/2017 COMPARISON: NONE CLINICAL HISTORY: elevated liver enzymes. Elevated liver enzymes, intermittent abdomen pain and N/V x couple months EXAM MEASUREMENTS: Liver Length: 16.6 cm Gallbladder Wall: 0.2 cm CBD: 0.5 cm Right Kidney: 10.3 x 5.3 x 4.2 cm Difficult and limited study due to patient body habitus Pancreas: visualized portions wnl, head and tail limited by overlying midline bowel gas Liver: visualized portions appear heterogeneous with increased echogenicity throughout Gallbladder: appears to be some hyperechoic echoes along posterior wall, possible sludge, wall measu res wnl Evidence for sonographic Dodge's sign: yes CBD: visualized portions wnl, limited by overlying bowel gas Right Kidney: visualized portions wnl, limited by rib shadowing and overlying bowel gas IMPRESSION: 1. Suspect gallbladder sludge. 2. Probable underlying fatty hepatic infiltration.
[2017-07-14 19:24] LABS: Hepatitis A Antibody IgM Non-Reactive (Non-Reactive); Hepatitis B Core IgM Non-Reactive (Non-Reactive)
[2017-07-15] MEDS: LORazepam 2 MG/ML INJ IV PRN ×3 (05:16→11:35)
[2017-07-15] MEDS: NON-FORMULARY DRUG (Buprenorphine Hcl/Naloxone Hcl [Suboxone 8 Mg-2 Mg Sl Film] 1 FILM) SL SCH (08:04)
[2017-07-15] MEDS: IPRATROPIUM-ALBUTEROL 3 ML NEB INHALATION SCH ×3 (08:07→15:13)
[2017-07-15] MEDS: ATENOLOL 25 MG TAB PO SCH (08:09)
[2017-07-15] MEDS: THIAMINE 100 MG TAB PO SCH (08:09)
[2017-07-15] MEDS: PIPERACILLIN-TAZOBACTAM 3.375 GM in DEXTROSE/WATER 1 50ML.BAG IVPB SCH (08:09)
[2017-07-15 08:11] LABS: ALT 112 U/L (9-52); AST 104 U/L (14-36); Alkaline Phosphatase 48 U/L (38-126); Anion Gap 12 mmol/L; Blood Urea Nitrogen 16 mg/dL (7-17); Calcium 9.6 mg/dL (8.4-10.2); Carbon Dioxide 29 mmol/L (22-30); Chloride 100 mmol/L (98-107); Glucose 107 mg/dL (74-99); Potassium 3.3 mmol/L (3.5-5.1); Sodium 141 mmol/L (137-145); Total Bilirubin 2.4 mg/dL (0.2-1.3); Total Protein 7.3 g/dL (6.3-8.2)
[2017-07-15] MEDS ORDERED: POTASSIUM CHLORIDE ER 20 MEQ TAB.ER PO STA (08:15)
[2017-07-15 08:22] VITALS: BP 115/72; RESP 18; TEMP 97.9
--- NOTE | 2017-07-15 09:17 | P.CN ---
Psychiatric Consult - . Consult date: 07/15/17 Consult:: 07/15/17 09:08 Patient was seen for a psych consult regarding suicidal ideation. Apparently patient came to the ER intoxicated and reported she was having suicidal thoughts. Apparently she had also requested to go to the rehab right away from the ER and when she was told it may not be possible, she told the ER personnel that she was suicidal and was admitted to medical floor for detox. According to patient's nurse, patient has refused to provide further details about her marital status living situation etc. Patient says his she has been drinking a fifth or more of liquor a day and is also on Subutex. Her UDS is negative for drugs of abuse. Today when I tried to talk to her she was not very well forthcoming with information. She did not even bother to turn towards me and talk to me until the nurses came to 0 and told her that she needs to talk to the doctor. She said she is doing fine except has some withdrawal symptoms. She said she does not want to go to the rehab, wants to go home when she is detoxed etc. Her speech is soft short and goal directed. Her mood is euthymic and affect is appropriate to the thought content. She denies hallucinations and delusional thinking. She insists that she is not suicidal and does not need a sitter. She denies homicidal thoughts. She is well oriented with adequate memory concentration etc. Her insight is fair and judgment appears to be impaired in the sense that she came here requesting rehab and now she says she just wants to be detoxed and go home. Assessment: Alcohol use disorder severe. Probable opioid use disorder moderate to severe. Patient denies suicide thoughts or plans. Suggestion: Patient's sister can be discontinued. Patient can be discharged when she is medically clear.
--- NOTE | 2017-07-15 11:06 | P.PN ---
Subjective 46-year-old being treated for alcohol withdrawals patient was evaluated by psychiatric suicidal ideations and patient denied any present suicidal ideations please refer to that dictation for further details. Patient is also being treated for pneumonia possibly aspiration with Zosyn. Patient hypoxemia resolved is receiving Ativan every 2 hours will monitor 1 more day possibility of discharge tomorrow. Patient is declining any treatment for her depression. Constitutional: Patient says she is still not feeling well Cardio vascular: denied any chest pain, palpitations Gastrointestinal denied any nausea vomiting Pulmonary: Denied any shortness of breath cough Neurologic denied any new focal deficits Objective - Vital Signs Vital signs: Vital Signs Temp 97.9 F 07/15/17 07:20 Pulse 88 07/15/17 08:20 Resp 18 07/15/17 07:20 BP 115/72 07/15/17 07:20 Pulse Ox 93 L 07/15/17 08:08 Intake & Output 07/14/17 07/15/17 07/15/17 18:59 06:59 18:59 Intake Total 350 60 Balance 350 60 Intake: Intake, IV Titration 50 Amount Piperacillin-Tazobactam 3 50 .375 gm In Dextrose/Water 1 50ml.bag @ 12.5 mls/hr IVPB Q8HR [facility] Rx#: [id number] Oral 300 60 Other: Voiding Method Toilet Toilet # Voids 3 1 - Exam PHYSICAL EXAMINATION: GENERAL: The patient is alert and oriented x3, not in any acute distress. Well developed, well nourished. HEENT: Pupils are round and equally reacting to light. EOMI. No scleral icterus. No conjunctival pallor. Normocephalic, atraumatic. No pharyngeal erythema. No thyromegaly. CARDIOVASCULAR: S1 and S2 present. No murmurs, rubs, or gallops. PULMONARY: Chest is clear to auscultation, no wheezing or crackles. ABDOMEN: Soft, nontender, nondistended, normoactive bowel sounds. No palpable organomegaly. MUSCULOSKELETAL: No joint swelling or deformity. EXTREMITIES: No cyanosis, clubbing, or pedal edema. NEUROLOGICAL: Gross neurological examination did not reveal any focal deficits. SKIN: No rashes. - Labs CBC & Chem 7: 07/14/17 07:12 07/15/17 07:31 Labs: Abnormal Lab Results - Last 24 Hours (Table) 07/14/17 07/15/17 Range/Units 07:12 07:31 Potassium 3.3 L (3.5-5.1) mmol/L Creatinine 0.47 L (0.52-1.04) mg/dL Glucose 107 H (74-99) mg/dL Total Bilirubin 2.4 H (0.2-1.3) mg/dL AST 104 H (14-36) U/L ALT 112 H (9-52) U/L Hep C IgG Ab Reactive H (Non-Reactive) Assessment and Plan Plan: -Acute hypoxic respiratory failure: Possible pneumonia in the right upper lobe patient is on Zosyn presently -Alcohol abuse: Counseling was provided -Severe depression: Psychiatric evaluated the patient and sitter was discontinued -Alcohol withdrawal: Patient will be on Ativan CIWA protocol -Hypertension -Elevated liver enzymes: Most probably due to acute alcoholic hepatitis repeat liver enzymes tomorrow, acute hepatitis panel and ultrasound of the gallbladder tomorrow.
[2017-07-15 11:41] VITALS: PULSE 88
--- NOTE | 2017-07-15 12:45 | P.PN ---
Subjective Progress Note Date: 07/15/17 Principal diagnosis: Right upper lobe opacity, rule out mucous plug versus endobronchial massKonrad Dozier is a 46-year-old white female patient of Dr. Butcher, who was brought to the emergency department on 07/12/2017 at 1515 with complaints of feeling suicidal. Patient reports drinking heavily for 2 days prior to admission, she reportedly drink 2 quarts of vodka, was feeling depressed. She called her friend and requested to be taken to the hospital. Patient has a history of prior suicidal attempts right overdose, currently is not on any meds for depression, and she does not follow with any psychiatrist. She is a current smoker, 1-1/2 pack a day, for last 10-15 years, denies any history of asthma or COPD, prior history of chronic pulmonary conditions. Patient has a history of heroin abuse, in remission, she is currently on Suboxone. Other medical history includes hypertension, no history of heart disease or diabetes. Patient reports vomiting several times while she was intoxicated, is having some chills and sweats, but denies any dyspnea. Chest x-ray completed in emergency room showed new spiculated right paratracheal opacity in the medial upper lobe, as well as followed up with CTA chest which did not show any evidence for pulmonary embolism, and showed scattered atelectatic changes throughout the right upper lobe with more prominent focal medial atelectasis, with the possibility of an obstructing mucous plug or other endobronchial lesion. No obvious mass or adenopathy noted. VQ scan showed a low to intermediate probability of pulmonary embolism, and a large matching defect in the right upper lobe without corresponding pulmonary consolidation or mass. Patient has been afebrile while in the hospital, room air and socks is 88%, patient is on 2 L of oxygen per nasal cannula to sat at 93-94%. Labs showed WBC of 3.6, hemoglobin is 16.1, sodium of 146, CO2 of 13, BUN of 15, creatinine 0.65, urinalysis showed 1+ protein, 2+ ketones, trace blood, negative for leuks , and nitrites. Urine hCG was negative, salicylate level was less than 1.0, acetaminophen level was less than 10, urine drug screen was negative. Blood gas bleeding in the emergency room showed pO2 of 63, pCO2 of 37, and pH of 7.50 , and this was done on room air, with metabolic alkalosis and hypoxemia. Patient has significant wheezing and bronchospastic cough, was started on nebulized bronchodilators, started on Ativan for EtOH withdrawals, she was placed suicidal precautions, and was admitted for further management. We are asked to see this patient in consultation in regards to the right upper lobe opacity. The patient is seen again today 07/15/2017 in follow-up on the regular medical floor. She is currently awake and alert in no acute distress. Not wanting to discuss much. She denies any worsening shortness of breath at this time. He is maintaining O2 saturations in the 90s on room air. No tachycardia. No tachypnea. She is afebrile. She is continued on bronchodilators and Zosyn. She remains on the CIWA protocol requiring Ativan. Today's chest x-ray is pending. Objective - Vital Signs Vital signs: Vital Signs Temp 97.9 F 07/15/17 07:20 Pulse 88 07/15/17 11:41 Resp 18 07/15/17 07:20 BP 115/72 07/15/17 07:20 Pulse Ox 93 L 07/15/17 08:08 Intake & Output 07/14/17 07/15/17 07/15/17 18:59 06:59 18:59 Intake Total 350 60 Balance 350 60 Intake: Intake, IV Titration 50 Amount Piperacillin-Tazobactam 3 50 .375 gm In Dextrose/Water 1 50ml.bag @ 12.5 mls/hr IVPB Q8HR [facility] Rx#: [id number] Oral 300 60 Other: Voiding Method Toilet Toilet # Voids 3 1 - Exam 46-year-old white female resting in bed, in no acute distress - Constitutional General appearance: cooperative, no acute distress, obese - EENT Eyes: PERRLA ENT: NA/AT Ears: bilateral: normal - Neck Neck: no lymphadenopathy, normal ROM Carotids: bilateral: upstroke normal Thyroid: bilateral: normal size - Respiratory Respiratory: bilateral: wheezing, prolonged expiration - Cardiovascular Rhythm: regular Heart sounds: normal: S1, S2 ankle Peripheral Edema: absent: None leg Peripheral Edema: absent: None foot Peripheral Edema: absent: None dorsalis pedis Peripheral Pulses: bilateral: Normal radial pulse Peripheral Pulses: bilateral: Normal - Gastrointestinal General gastrointestinal: no organomegaly, soft, no tenderness - Integumentary Integumentary: normal turgor - Neurologic Neurologic: CNII-XII intact - Musculoskeletal Musculoskeletal: strength equal bilaterally - Psychiatric Psychiatric: A&O x's 3, appropriate affect, intact judgment & insight - Labs CBC & Chem 7: 07/14/17 07:12 07/15/17 07:31 Labs: Abnormal Lab Results - Last 24 Hours (Table) 07/14/17 07/15/17 Range/Units 07:12 07:31 Potassium 3.3 L (3.5-5.1) mmol/L Creatinine 0.47 L (0.52-1.04) mg/dL Glucose 107 H (74-99) mg/dL Total Bilirubin 2.4 H (0.2-1.3) mg/dL AST 104 H (14-36) U/L ALT 112 H (9-52) U/L Hep C IgG Ab Reactive H (Non-Reactive) Assessment and Plan Assessment: Assessment: #1. Right upper lobe obstructing mucous plug versus endobronchial lesion, with surrounding atelectasis, without evidence of obvious mass or adenopathy. #2. Suspect possible aspiration, patient reports several episodes of vomiting at home #3. EtOH abuse #4. Suicidal ideation #5. Elevated liver transaminases, likely related to alcohol abuse #6. History of major depression with previous suicidal attempts by overdose #7. Nicotine dependence, patient smokes one and a half packs a day for 10-15 years #8. History of heroin abuse, currently in remission, and the patient is on Suboxone Plan: The patient was seen and evaluated by Dr. Cavanaugh. Unfortunately her chest x- ray is still pending. We'll review once done. She is improved today as compared to yesterday. Continue with bronchodilators and Zosyn. Continue the CIWA protocol. We will continue to follow and make further recommendations based on her clinical status. I, the cosigning physician, performed a history & physical examination of the patient. Lungs sounds few scattered rhonchi more so on the right. Maintaining good O2 saturations in the 90s on room air. I discussed the assessment and plan of care with my nurse practitioner, Sridevi Walker. I attest to the above note as dictated by her.
--- NOTE | 2017-07-15 13:01 | XR ---
EXAMINATION TYPE: XR chest 2V DATE OF EXAM: 07/15/2017 COMPARISON: Chest x-ray and CTA chest from 2 days ago. HISTORY: Aspiration pneumonia per order. TECHNIQUE: Frontal and lateral views of the chest are obtained. FINDINGS: There is improved aeration in medial right upper lobe atelectasis and/or consolidation. Th ere is new small amount of fluid in the right minor fissure with adjacent right upper lung atelectasi s and/or infiltrate. Additional small amount of fluid is suspected in the right major fissure. There is new patchy left basilar opacity seen on frontal view less well seen on lateral view. The cardiac s ilhouette size is within normal limits. The osseous structures are intact. IMPRESSION: Improved right medial atelectasis and/or consolidation suggests successful pulmonary delvis atment of mucous plugging. New small right pleural fluid is noted, slightly thicker in the right jannette r fissure raising concern for adjacent atelectasis and/or developing infiltrate. Cannot exclude devel oping left basilar atelectasis and/or infiltrate. Progress study advised.
[2017-07-15] MEDS ORDERED: HEPARIN SODIUM,PORCINE 5,000 UNIT/ML 1 ML VIAL SQ SCH (16:00)
--- NOTE | 2017-07-16 18:37 | P.DS ---
Providers Date of admission: 07/13/17 21:40 Attending physician: Sallie Sanz Consults: 07/13/17 21:40 Consult Physician Routine Consulting Provider: Brit Cavanaugh Consult Reason/Comments: dyspnea Do you want consulting provider notified?: Yes Consult Physician Routine Consulting Provider: Florence Tong Consult Reason/Comments: Suicidal ideation Do you want consulting provider notified?: Yes Primary care physician: Stated None Hospital Course: Patient left AMA Patient Condition at Discharge: Stable Plan - Discharge Summary New Discharge Prescriptions: No Action Atenolol [Tenormin] 25 mg PO DAILY Tiotropium Br/Olodaterol HCl [Stiolto Respimat Inhal [place]] 1 spray INHALATION RT-DAILY Buprenorphine HCl/Naloxone HCl [Suboxone 8 mg-2 mg Sl Film] 1 film SL BID Discharge Medication List Atenolol [Tenormin] 25 mg PO DAILY 07/12/17 [History] Buprenorphine HCl/Naloxone HCl [Suboxone 8 mg-2 mg Sl Film] 1 film SL BID [History] Tiotropium Br/Olodaterol HCl [Stiolto Respimat Inhal Justin] 1 spray INHALATION RT-DAILY 07/12/17 [History] Follow up Appointment(s)/Referral(s): None,Stated [Primary Care Provider] - 1-2 days Discharge Disposition: Left Against Medical Advice
== END 2017-07-15 15:30 | disposition left against medical advice (07) | DRG 177 ==
LOC: EC 15:15 → 5MS5E 07-13 21:40
PROVIDERS: ADMIT Internal Medicine; ATTEND Internal Medicine
DX: J69.0 Pneumonitis due to inhalation of food and vomit (principal); J96.01 Acute respiratory failure with hypoxia; R45.851 Suicidal ideations; F10.239 Alcohol dependence with withdrawal, unspecified; E87.3 Alkalosis; J98.11 Atelectasis; K70.10 Alcoholic hepatitis without ascites; J98.09 Other diseases of bronchus, not elsewhere classified; I10 Essential (primary) hypertension; F11.11 Opioid abuse, in remission; F32.9 Major depressive disorder, single episode, unspecified; F17.210 Nicotine dependence, cigarettes, uncomplicated; F41.9 Anxiety disorder, unspecified; Z79.899 Other long term (current) drug therapy; Z71.41 Alcohol abuse counseling and surveillance of alcoholic; Z91.5 Personal history of self-harm
CPT/HCPCS: 36415; 36600; 71046; 71275; 76705; 78582; 80053; 80074; 80306; 81001; 81025; 82075; 82805; 83520; 85025; 93005; 94640; 94760; 96365; 96366; 96374; 96375; 96376; 99285

== ENCOUNTER 2017-07-30 14:47 | Emergency (ER) | payer OTHER ==
--- NOTE | 2017-07-30 15:28 | ED ---
General Adult HPI - General Chief complaint: Shortness of Breath Stated complaint: Sob Time Seen by Provider: 07/30/17 15:16 Source: patient Mode of arrival: ambulatory Limitations: no limitations - History of Present Illness Initial comments: Patient sent from [place] for low pulse ox reading. Patient denies any symptoms, including shortness of breath, cough, chest pain, palpitations. Patient states she is a regular smoker, at least one pack per day. Patient denies any numbness or weakness in the arms. Denies any rashes or skin color changes. Patient denies history of blood clots. Denies trauma, prolonged immobilization, recent surgery, estrogen use. Pulse ox 93% triage. She states she has no concerns at all, states she only came in because she was told she had to because her pulse ox reading was low at facility. - Related Data Home Medications Medication Instructions Recorded Confirmed Atenolol [Tenormin] 25 mg PO DAILY 07/12/17 07/12/17 Buprenorphine HCl/Naloxone HCl 1 film SL BID 07/12/17 07/12/17 [Suboxone 8 mg-2 mg Sl Film] Tiotropium Br/Olodaterol HCl 1 spray INHALATION RT-DAILY 07/12/17 07/12/17 [Stiolto Respimat Inhal [place]] Allergies Allergy/AdvReac Type Severity Reaction Status Date / Time No Known Allergies Allergy Verified 07/30/17 15:09 Review of Systems ROS Statement: Those systems with pertinent positive or pertinent negative responses have been documented in the HPI. ROS Other: All systems not noted in ROS Statement are negative. Constitutional: Denies: fever, chills, weakness Eyes: Denies: vision change ENT: Denies: throat pain, congestion Respiratory: Denies: cough, dyspnea, wheezes, stridor Cardiovascular: Denies: chest pain, palpitations Endocrine: Denies: fatigue Gastrointestinal: Denies: abdominal pain, nausea, vomiting Genitourinary: Denies: urgency, dysuria Musculoskeletal: Denies: back pain, joint swelling, arthralgia, myalgia Skin: Denies: rash, change in color Neurological: Denies: headache, weakness, numbness Past Medical History Past Medical History: Hypertension History of Any Multi-Drug Resistant Organisms: None Reported Past Surgical History: Tonsillectomy Past Psychological History: No Psychological Hx Reported Smoking Status: Current every day smoker Past Alcohol Use History: Daily Past Drug Use History: None Reported - Past Family History Father Family Medical History: Unable to Obtain Mother Family Medical History: Unable to Obtain General Exam - General Exam Comments Initial Comments: Sitting up on side of bed. No acute distress. Conversing normally. Calm, pleasant. Not appear in pain. Well-appearing. Limitations: no limitations General appearance: alert, in no apparent distress Head exam: Present: atraumatic, normocephalic Eye exam: Present: normal appearance, PERRL, EOMI ENT exam: Present: mucous membranes moist Neck exam: Present: normal inspection Respiratory exam: Present: normal lung sounds bilaterally, other (No resp distress. Pulse ox 93% on hands bilat, 97% on ear. ). Absent: respiratory distress, wheezes, rales, rhonchi, stridor, accessory muscle use, decreased breath sounds, prolonged expiratory Cardiovascular Exam: Present: regular rate, normal rhythm, other (Radial pulses +2 out of 4 bilaterally. Cap refill 3 seconds in all fingers.) GI/Abdominal exam: Present: soft. Absent: distended Extremities exam: Present: normal inspection, full ROM. Absent: tenderness, pedal edema, joint swelling, calf tenderness Neurological exam: Present: alert, oriented X3 Psychiatric exam: Present: normal affect, normal mood Skin exam: Present: warm, dry, intact. Absent: rash, cyanosis Course Vital Signs 07/30/17 15:07 Temperature 97.9 F Pulse Rate 89 Respiratory 16 Rate Blood Pressure 132/91 O2 Sat by Pulse 93 L Oximetry Medical Decision Making - Medical Decision Making Patient has no complaints at this time. Denies any shortness of breath. Pulse ox 97% on her ear. Upper extremity is neurovascularly intact. Patient feels comfortable being discharged. Patient agrees to return to ER immediately if she experienced any symptoms including shortness of breath, chest pains, palpitations. Patient to follow primary care physician, for possible Raynauds or peripheral vascular disease. Intact distal pulses at this time. Patient discharged back to [place]. Disposition Clinical Impression: Well adult health check Disposition: HOME SELF-CARE Condition: Good Instructions: Dyspnea (ED) Additional Instructions: Return to ER immediately if he experiences any symptoms including shortness of breath, numbness, weakness him a cough, chest pain, palpitations. Is patient prescribed a controlled substance at d/c from ED?: No Referrals: Chuck Butcher MD [Primary Care Provider] - 1-2 days
[2017-07-30 15:58] VITALS: BP 120/89; PULSE 81; RESP 18; TEMP 98.4
== END 2017-07-30 15:57 | disposition home or self-care (01) ==
LOC: EC 14:47
DX: Z00.00 Encounter for general adult medical examination without abnormal findings (principal); I10 Essential (primary) hypertension; F17.210 Nicotine dependence, cigarettes, uncomplicated; Z79.899 Other long term (current) drug therapy
CPT/HCPCS: 99284

== ENCOUNTER 2018-05-19 07:22 | Emergency (ER) | payer OTHER ==
[2018-05-19 07:26] VITALS: BP 146/83; PULSE 100; RESP 18; TEMP 97.4
--- NOTE | 2018-05-19 07:47 | ED ---
General Adult HPI - General Chief complaint: Alcohol Stated complaint: not feeling well Time Seen by Provider: 05/19/18 07:27 Source: patient, RN notes reviewed Mode of arrival: ambulatory Limitations: no limitations - History of Present Illness Initial comments: Patient is a pleasant 47-year-old female presenting to the emergency department seeking help for discontinuing alcohol. Patient states she does have a history of alcohol problems. Patient has been sober for 9 months and then started drinking a month ago. Patient is drinking up to a fifth of alcohol per day. Patient last had alcohol around midnight. Patient feels like her heart is racing some. Patient has no other complaints at this time. Patient previously has gone to [facility]. - Related Data Home Medications Medication Instructions Recorded Confirmed Atenolol [Tenormin] 25 mg PO DAILY 07/12/17 07/12/17 Buprenorphine HCl/Naloxone HCl 1 film SL BID 07/12/17 07/12/17 [Suboxone 8 mg-2 mg Sl Film] Tiotropium Br/Olodaterol HCl 1 spray INHALATION RT-DAILY 07/12/17 07/12/17 [Stiolto Respimat Inhal [place]] Allergies Allergy/AdvReac Type Severity Reaction Status Date / Time No Known Allergies Allergy Verified 05/19/18 07:26 Review of Systems ROS Statement: Those systems with pertinent positive or pertinent negative responses have been documented in the HPI. ROS Other: All systems not noted in ROS Statement are negative. Constitutional: Denies: fever Eyes: Denies: eye pain ENT: Denies: ear pain Respiratory: Denies: cough Cardiovascular: Reports: palpitations. Denies: chest pain Endocrine: Denies: fatigue Gastrointestinal: Denies: abdominal pain Genitourinary: Denies: dysuria Musculoskeletal: Denies: back pain Skin: Denies: rash Neurological: Denies: weakness Past Medical History Past Medical History: Hypertension History of Any Multi-Drug Resistant Organisms: None Reported Past Surgical History: Tonsillectomy Past Psychological History: No Psychological Hx Reported Smoking Status: Current every day smoker Past Alcohol Use History: Daily, Heavy Past Drug Use History: None Reported - Past Family History Father Family Medical History: Unable to Obtain Mother Family Medical History: Unable to Obtain General Exam Limitations: no limitations General appearance: alert, in no apparent distress Head exam: Present: atraumatic Eye exam: Present: normal appearance, PERRL ENT exam: Present: normal oropharynx Neck exam: Present: normal inspection Respiratory exam: Present: normal lung sounds bilaterally Cardiovascular Exam: Present: regular rate, normal rhythm GI/Abdominal exam: Present: soft. Absent: tenderness Extremities exam: Present: normal inspection. Absent: pedal edema, calf tenderness Neurological exam: Present: alert Psychiatric exam: Present: normal affect, normal mood Skin exam: Present: normal color Course Vital Signs 05/19/18 07:23 Temperature 97.4 F L Pulse Rate 100 Respiratory 18 Rate Blood Pressure 146/83 O2 Sat by Pulse 99 Oximetry Disposition Clinical Impression: Alcohol abuse Disposition: HOME SELF-CARE Condition: Stable Instructions (If sedation given, give patient instructions): Abuse of Alcohol (ED) Additional Instructions: Please follow-up with [facility] in the next day or 2 for rehab. Please also follow-up with primary care physician next day or 2 for recheck. Discontinue alcohol use. Do not take alcohol with Ativan. Is patient prescribed a controlled substance at d/c from ED?: Yes When asked, does pt state using other controlled substances?: No If prescribed controlled substance>3 days was MAPS reviewed?: Prescribed <3 Days Referrals: Sri Lynn MD [STAFF PHYSICIAN] - 1-2 days Time of Disposition: 07:46
== END 2018-05-19 07:58 | disposition home or self-care (01) ==
LOC: EC 07:22
DX: F10.10 Alcohol abuse, uncomplicated (principal); I10 Essential (primary) hypertension; F17.200 Nicotine dependence, unspecified, uncomplicated; Z79.899 Other long term (current) drug therapy
CPT/HCPCS: 99283